=== PATIENT | female | born 1975 | race Two or more races ===

== ENCOUNTER 2018-03-12 09:42 | Observation (INO) ==
[2018-03-12 10:40] LABS: Baso # (Auto) 0.1 th/mm3 (0.0-0.2); Baso % (Auto) 0.5 % (0.0-2.0); Eos # (Auto) 0.1 th/mm3 (0.0-0.4); Eos % (Auto) 0.4 % (0.0-4.0); Hematocrit 35.6 % (35.0-46.0); Lymph # (Auto) 2.2 th/mm3 (1.0-4.8); Lymph % (Auto) 17.4 % (9.0-44.0); Mean Corpuscular HGB Conc 33.7 % (32.0-36.0); Mean Corpuscular Volume 92.1 fL (80.0-100.0); Mean Platelet Volume 7.7 fL (7.0-11.0); Mono # (Auto) 0.6 th/mm3 (0.0-0.9); Mono % (Auto) 4.9 % (0.0-8.0); Neut # (Auto) 9.9 th/mm3 (1.8-7.7); Neut % (Auto) 76.8 % (16.0-70.0); Platelet Count 276 th/mm3 (150-450); Red Blood Count 3.87 mil/mm3 (4.00-5.30); Red Cell Distribution Width 15.3 % (11.6-17.2); White Blood Count 12.9 th/mm3 (4.0-11.0)
[2018-03-12] MEDS ORDERED: Morphine Inj 4 MG, Morphine Inj 2 MG IV.PUSH ONE ×2 (10:45)
[2018-03-12] MEDS ORDERED: Sod Chloride 0.9% Inj 1,000 ML IV.SIG SCH (10:45)
[2018-03-12 11:00] LABS: Alkaline Phosphatase 66 U/L (45-117); Total Protein 6.8 g/dL (6.4-8.2)
[2018-03-12 11:04] LABS: Alanine Aminotransferase 16 U/L (10-53); Albumin 3.4 g/dL (3.4-5.0); Anion Gap 7 meq/L (5-15); Aspartate Aminotransferase 34 U/L (15-37); Blood Urea Nitrogen 18 mg/dL (7-18); Calcium 7.6 mg/dL (8.5-10.1); Carbon Dioxide 21.6 meq/L (21.0-32.0); Chloride 112 meq/L (98-107); Glomerular Filtration Rate 71 mL/min (>89); Glucose,Random 124 mg/dL (74-106); Lipase 63 U/L (73-393); Sodium 141 meq/L (136-145)
[2018-03-12 11:10] LABS: Potassium 4.6 meq/L (3.5-5.1)
--- NOTE | 2018-03-12 12:04 | CT ---
EXAM DATE: 03/12/2018 10:51 AM EDT AGE/SEX: 42 years / Female INDICATIONS: Severe abdomen pain uterine ablation two days ago CLINICAL DATA: This is the patient's initial encounter. Patient reports that signs and symptoms have been present for 1 day and indicates a pain score of 10/10. MEDICAL/SURGICAL HISTORY: Crohn's disease. . Uterine ablation ORAL CONTRAST: No oral contrast ingested. RADIATION DOSE: 7.29 CTDI (mGy) COMPARISON: No prior exams available for comparison. TECHNIQUE: Multiple contiguous axial images were obtained through the abdomen and pelvis following b olus infusion of 80 ml Omnipaque 350 (iohexol) nonionic water-soluble contrast as a single exam dos e. No oral contrast ingested. Using automated exposure control and adjustment of the mA and/or kV ac cording to patient size, radiation dose was kept as low as reasonably achievable to obtain optimal di agnostic quality images. DICOM format image data is available electronically for review and comparis on. FINDINGS: There is linear atelectasis in the left lower lobe abutting the oblique fissure. The osseous structur es are intact. No pleural or pericardial effusions are seen. There is a cyst in the right lobe of the liver posteriorly measuring 1 cm. Gallbladder, kidneys, spleen, pancreas, stomach unremarkable. Urin tone bladder is unremarkable. There is no evidence of bowel obstruction. The appendix is normal. The o varies are normal. There is abnormal prominence of the endometrial cavity measuring 3.6 cm in transve rse dimension on axial image 60. Also noted on image 16 endometrial cavity to the left is a small loc ule of air. This may be related to the patient's recent uterine ablation. CONCLUSION: 1. Abnormal appearance of the endometrial cavity which is widened up to 3.6 cm and contains a small locule of air. 2. There are atelectasis in the left lower lobe and right middle lobe. 3. Otherwise unremarkable. Electronically signed by: Eric Lopez MD 03/12/2018 12:03 PM EDT
[2018-03-12 13:07] LABS: Bilirubin,Urine Negative (Negative); Clarity,Urine Clear (Clear); Color,Urine Straw (Yellw/Straw); Glucose,Urine (UA) Negative (Negative); Leukocyte Esterase,Urine Negative (Negative); Nitrite,Urine Negative (Negative); Specific Gravity,Urine 1.042 (1.002-1.035); Squamous Epithelial Cell,Urine <1 /hpf (0-5)
[2018-03-12] MEDS ORDERED: Ketorolac Inj 30 MG/ML (IVP) Vial IV.PUSH ONE (13:20)
--- NOTE | 2018-03-12 14:50 | ED ---
HPI General Chief complaint: Abdominal Pain Stated complaint: GI Time Seen by Provider: 03/12/18 09:46 History of Present Illness HPI narrative: Patient 42-year-old female presents emergency department for evaluation of generalized abdominal pain for the past 2 days. Patient states she has a history of Crohn's and recently had a uterine ablation for dysfunctional uterine bleeding with an outside indigo vat tender cloth. Patient states she has been having pain ever since her ablation 2 days ago. No fevers no cough no congestion no diarrhea no blood in the stool. She states the symptoms are severe, generalized abdomen, associated signs symptoms duration in context as above Related Data Home Medications Medication Instructions Recorded Confirmed dicyclomine 20 mg PO QID 03/12/18 03/12/18 omeprazole 20 mg PO DAILY 03/12/18 03/12/18 Allergies Allergy/AdvReac Type Severity Reaction Status Date / Time Sulfa (Sulfonamide Allergy Swelling Verified 03/12/18 09:56 Antibiotics) NSAIDS (Non-Steroidal AdvReac Gastrointestinal Verified 03/12/18 09:56 Anti-Inflamma Upset Review of Systems ROS: all other systems reviewed are negative [facility] Medical History Medical History Crohn's colitis (Acute) Surgical History Surgical History History of endometrial ablation (Acute) Social History Social History Substance History: No History of Abuse Second Hand Smoke Exposure: Yes Smoking Status: Current every day smoker Tobacco Type: Cigarettes How Often Do You Have a Drink Containing Alcohol: Never Recent Travel in [facility] within the Last 8 Weeks: No Recent Out of Country Travel within the Last 8 Weeks: No Immunization History Tetanus Immunization: Unsure Exam Narrative Exam Narrative: GENERAL: Well-developed well-nourished female, writhing in pain. SKIN: Focused skin assessment warm/dry. HEAD: Atraumatic. Normocephalic. EYES: Pupils equal and round. No scleral icterus. No injection or drainage. ENT: No nasal bleeding or discharge. Mucous membranes pink and moist. NECK: Trachea midline. No JVD. CARDIOVASCULAR: Regular rate and rhythm. No murmur appreciated. RESPIRATORY: No accessory muscle use. Clear to auscultation. Breath sounds equal bilaterally. GASTROINTESTINAL: Abdomen soft, minimally tender in all 4 quadrants, nondistended. Hepatic and splenic margins not palpable. No rebound no percussive tenderness. MUSCULOSKELETAL: No obvious deformities. No clubbing. No cyanosis. No edema. NEUROLOGICAL: Awake and alert. No obvious cranial nerve deficits. Motor grossly within normal limits. Normal speech. PSYCHIATRIC: Appropriate mood and affect; insight and judgment normal. Course Initial Documented Vital Signs Temperature 98 F 03/12/18 09:47 Pulse Rate 71 03/12/18 09:47 Respiratory Rate 22 03/12/18 09:47 Blood Pressure 137/89 03/12/18 09:47 Pulse Oximetry 99 03/12/18 09:47 Last Documented Vital Signs Temperature 98 F 03/12/18 09:47 Pulse Rate 77 03/12/18 12:27 Respiratory Rate 24 03/12/18 12:27 Blood Pressure 135/82 03/12/18 12:27 Pulse Oximetry 98 03/12/18 12:27 Medical Decision Making MDM Narrative Medical decision making narrative: Patient room in the emergency department, really the patient has what appears to be a significant amount of pain with a very benign abdomen. Her labs are reassuring and she was within normal limits. Within normal limits was initially responsive to 6 mg of morphine and Zofran, she also did receive 4 mg of Zofran prior to arrival. Ultimately went to reassess patient after CAT scan which revealed minimal amount of intrauterine fluid which I think is appropriate after her procedure. She is still complaining of significant pain. A dose of Toradol was ordered as well, she is still writhing back and forth in pain. 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 Medical Screen Exam Complete: Yes Emergency Medical Condition: Yes Lab Data Result diagrams: 03/12/18 10:31 03/12/18 10:31 POC Results POC Urine Results Negative Lab Results 03/12/18 03/12/18 03/12/18 Range/Units 10:31 10:31 12:49 WBC 12.9 H (4.0-11.0) th/mm3 RBC 3.87 L (4.00-5.30) mil/mm3 Hgb 12.0 (11.6-15.3) gm/dL Hct 35.6 (35.0-46.0) % MCV 92.1 (80.0-100.0) fL MCH 31.0 (27.0-34.0) pg MCHC 33.7 (32.0-36.0) % RDW 15.3 (11.6-17.2) % Plt Count 276 (150-450) th/mm3 MPV 7.7 (7.0-11.0) fL Neut % (Auto) 76.8 H (16.0-70.0) % Lymph % (Auto) 17.4 (9.0-44.0) % [place] % (Auto) 4.9 (0.0-8.0) % Eos % (Auto) 0.4 (0.0-4.0) % Baso % (Auto) 0.5 (0.0-2.0) % Neut # (Auto) 9.9 H (1.8-7.7) th/mm3 Lymph # (Auto) 2.2 (1.0-4.8) th/mm3 [place] # (Auto) 0.6 (0.0-0.9) th/mm3 Eos # (Auto) 0.1 (0.0-0.4) th/mm3 Baso # (Auto) 0.1 (0.0-0.2) th/mm3 WBC Differential . Differential Comment Auto diff final Sodium 141 (136-145) meq/L Potassium 4.6 (3.5-5.1) meq/L Chloride 112 H (98-107) meq/L Carbon Dioxide 21.6 (21.0-32.0) meq/L Anion Gap 7 (5-15) meq/L BUN 18 (7-18) mg/dL Creatinine 0.87 (0.50-1.00) mg/dL Estimated GFR 71 L (>89) mL/min Random Glucose 124 H (74-106) mg/dL Calcium 7.6 L (8.5-10.1) mg/dL Total Bilirubin 0.4 (0.2-1.0) mg/dL AST 34 (15-37) U/L ALT 16 (10-53) U/L Alkaline Phosphatase 66 (45-117) U/L Total Protein 6.8 (6.4-8.2) g/dL Albumin 3.4 (3.4-5.0) g/dL Lipase 63 L (73-393) U/L Urine Color Straw (Yellw/Straw) Urine Clarity Clear (Clear) Urine pH 7.0 (5.0-8.5) Ur Specific [place] 1.042 H (1.002-1.035) Urine Protein Negative (Neg-Trace) mg/dL Urine Glucose (UA) Negative (Negative) mg/dL Urine Ketones 20 (Negative) mg/dL Urine Occult Blood Small H (Negative) Urine Nitrate Negative (Negative) Urine Bilirubin Negative (Negative) Urine Urobilinogen Less than 2 (Less than 2) mg/dL Ur Leukocyte Esterase Negative (Negative) Urine RBC 2 (0-3) /hpf Urine WBC 1 (0-5) /hpf Ur Squamous Epith Cells <1 (0-5) /hpf Micro UA Comment Culture not ind Ur Microscopic Review Not Reportable Urine Culture Comments Culture not ind Imaging Data Radiologist's impression: Abdomen/Pelvis CT 03/12/18 10:45 CONCLUSION: 1. Abnormal appearance of the endometrial cavity which is widened up to 3.6 cm and contains a small locule of air. 2. There are atelectasis in the left lower lobe and right middle lobe. 3. Otherwise unremarkable. Discharge Plan Discharge Disposition Patient Disposition: 30 Still Patient Discharge Details Diagnosis: Abdominal pain Physicians Team ED Provider: Mateo Moody Primary Care Provider: UNKNOWN, Attending Provider: Deondre Shipman Other Providers: Caro Luciano ; Octavia Rojo Discharge Interventions Interventions: Vital Signs Last Done: 03/12/18 12:27 Status ED Status: Admitted Observation Patient
--- NOTE | 2018-03-12 15:22 | P.CONOB ---
History of Present Illness Consult date: 03/12/18 Requesting Physician: Mateo Moody Reason for Consult: intractable abdominal pain Primary Care Physician: Decontamination Worker Dr. Macdonald Chief Complaint: Belly pain History of Present Illness: This is a 42-year-old status post NovaSure ablation 2 days ago. 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 Macdonald and U[place]. I was called for a consult due to intractable abdominal pain. Past OB history x4 without complication past E D TECH denies STDs past medical history Crohn's disease colitis allergies NSAIDs and sulfa surgical history NovaSure and tubal sterilization smokes 5 cigarettes daily denies illicit drug use Current meds all probably exam 2 g daily PMFSH - History History Provided By: Patient - Medical History Medical History: Medical History (Last Updated 03/12/18 @ 09:55 by Adore Blue RN) Crohn's colitis - Surgical History Surgical History: Surgical History (Last Updated 03/12/18 @ 09:55 by Adore Blue RN) History of endometrial ablation - Tobacco History Second Hand Smoke Exposure: Yes Tobacco Use In Past 30 Days: Yes Smoking Status: Current every day smoker Tobacco Type: Cigarettes - Alcohol History How Often Do You Have a Drink Containing Alcohol: Never - Substance Use History Substance History: No History of Abuse - Travel History Recent Travel in the [place] Within the Last 8 Weeks: No Recent Travel Out of the Country Within the Last 8 Weeks: No - Immunization History Tetanus Immunization: Unsure Medications and Allergies Active Medications: Active Medications Sodium Chloride (Ns Inj) 1,000 mls @ 0 mls/hr IV.SIG BOLUS DUY Last Infusion: 03/12/18 12:27 Dose: Infused Sodium Chloride (Ns Flush) 2 ml IV.FLUSH PRN PRN PRN Reason: FLUSH AFTER USING IV ACCESS Allergies Allergy/AdvReac Type Severity Reaction Status Date / Time Sulfa (Sulfonamide Allergy Swelling Verified 03/12/18 09:56 Antibiotics) NSAIDS (Non-Steroidal AdvReac Gastrointestinal Verified 03/12/18 09:56 Anti-Inflamma Upset Home Medications Medication Instructions Recorded Confirmed Type dicyclomine 20 mg PO QID 03/12/18 03/12/18 History omeprazole 20 mg PO DAILY 03/12/18 03/12/18 History Exam Vital signs: Vital Signs 03/12/18 09:47 03/12/18 11:48 03/12/18 12:27 Temperature 98 F Pulse Rate 71 77 Respiratory Rate 22 22 24 Blood Pressure 137/89 135/82 Pulse Oximetry 99 98 Intake & Output 03/11/18 03/12/18 03/12/18 18:59 06:59 18:59 Intake Total 1000 / 1000 Balance 1000 / 1000 Weight 57.153 kg Intake: IV 1000 / 1000 NS Inj 1,000 ML @ Wide Open IV. 1000 / 1000 SIG BOLUS DUY Rx#:[id number] - Constitutional severe distress - Routine HEENT Exam Head: Present: normocephalic Eye: Present: PERRL ENT: Present: mucous membranes moist - Routine Neck Exam Present: supple, full ROM - Routine Chest/Breast/Axilla Exam Chest wall: Absent: tenderness - Routine Respiratory Exam Present: CTA bilaterally. Absent: stridor - Routine Cardiovascular Exam Present: RRR - Routine Abdominal Exam Present: soft, normoactive bowel sounds, tenderness (On examination tenderness in all 4 quadrants noted however no rebound voluntary guarding present. Slight hypoactive bowel sounds) - Routine Exam External: Present: normal urethra appearance Groin: Absent: inguinal hernia Perineum Description: Intact Comments: Genital exam no lesions are present. Sterile speculum exam the cervix appears to be unremarkable there is some bleeding which is mucoid not unusual for a post ablative procedure no active vaginal bleeding is present the uterus is noted to be firm mobile nontender no adnexal tenderness no adnexal masses no point tenderness present no malodor noted. Patient reports no recent coitus last sexually active 2 months ago - Routine Extremities Exam Absent: cyanosis - Routine Skin Exam Present: intact - Routine Neurological Exam Present: alert, oriented X3 Results - Labs CBC & Chem 7: 03/12/18 10:31 03/12/18 10:31 Labs: Laboratory Results - last 24 hr 03/12/18 03/12/18 03/12/18 10:31 10:31 12:49 WBC 12.9 H RBC 3.87 L Hgb 12.0 Hct 35.6 MCV 92.1 MCH 31.0 MCHC 33.7 RDW 15.3 Plt Count 276 MPV 7.7 Neut % (Auto) 76.8 H Lymph % (Auto) 17.4 [place] % (Auto) 4.9 Eos % (Auto) 0.4 Baso % (Auto) 0.5 Neut # (Auto) 9.9 H Lymph # (Auto) 2.2 [place] # (Auto) 0.6 Eos # (Auto) 0.1 Baso # (Auto) 0.1 WBC Differential . Differential Comment Auto diff final Sodium 141 Potassium 4.6 Chloride 112 H Carbon Dioxide 21.6 Anion Gap 7 BUN 18 Creatinine 0.87 Estimated GFR 71 L Random Glucose 124 H Calcium 7.6 L Total Bilirubin 0.4 AST 34 ALT 16 Alkaline Phosphatase 66 Total Protein 6.8 Albumin 3.4 Lipase 63 L Urine Color Straw Urine Clarity Clear Urine pH 7.0 Ur Specific [place] 1.042 H Urine Protein Negative Urine Glucose (UA) Negative Urine Ketones 20 Urine Occult Blood Small H Urine Nitrate Negative Urine Bilirubin Negative Urine Urobilinogen Less than 2 Ur Leukocyte Esterase Negative Urine RBC 2 Urine WBC 1 Ur Squamous Epith Cells <1 Micro UA Comment Culture not ind Ur Microscopic Review Not Reportable Urine Culture Comments Culture not ind - Imaging Impressions Abdomen/Pelvis CT 03/12/18 10:45 CONCLUSION: 1. Abnormal appearance of the endometrial cavity which is widened up to 3.6 cm and contains a small locule of air. 2. There are atelectasis in the left lower lobe and right middle lobe. 3. Otherwise unremarkable. Assessment and Plan - Diagnosis (1) Abdominal pain Code(s): R10.9 - Unspecified abdominal pain Status: Acute (2) History of endometrial ablation Code(s): Z98.890 - Other specified postprocedural states Status: Acute Plan: Patient seen and evaluated with PGY 2 MD Bonnie. E D TECH exam is unremarkable. Cultures obtained to ERR on the side of caution. Review of CT scans there is no signs of uterine perforation-the free air which is minimal is consistent with post ablative changes. I have discussed with the ED attending at this time from a E D TECH standpoint clear.
[2018-03-12 15:57] LABS: Amphetamine Screen,Urine Neg (Neg); Barbiturate Screen,Urine Neg (Neg); Cannabinoid Screen,Urine Pos (Neg); Cocaine Screen,Urine Neg (Neg)
[2018-03-12 16:11] LABS: Opiate Screen,Urine Pos (Neg)
[2018-03-12] MEDS ORDERED: Acetaminophen 325 MG Tablet PO PRN ×2 (16:20)
[2018-03-12] MEDS ORDERED: Naloxone Inj 0.4 MG/ML Vial IV.PUSH PRN (16:20)
[2018-03-12] MEDS ORDERED: Bisacodyl 10 MG Supp RECTAL PRN (16:20)
[2018-03-12] MEDS ORDERED: Morphine Sulfate Inj 2 MG/ML Vial IV.PUSH PRN (16:20)
--- NOTE | 2018-03-12 16:20 | P.CONGI ---
History of Present Illness Consult date: 03/12/18 Consult reason: Intractable abdominal pain Chief complaint: GI History of Present Illness: Ms. Newman is a 42-year-old patient who presents to the emergency room this afternoon at [facility] for reported abdominal pain for 2 days. Patient states she has a history of Crohn's, gastritis, and colitis. Patient status post uterine ablation 2 days ago and states she has been having mid epigastric abdominal spasms and cramping since the procedure. She denies any fever or chills. She denies diarrhea constipation and any noted blood in the stool. She endorses nausea but denies vomiting. She rates the pain as 10 out of 10 at this time and states the only medication that works for this pain "begins with the D and has to be given with my anxiety medicine to the IV". GC and Chlamydia PCR obtained and pending. 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 Our practice has been consulted to evaluate patient's intractable abdominal pain. CT abdomen and pelvis done on admission reveal--. 1. Abnormal appearance of the endometrial cavity which is widened up to 3.6 cm and contains a small locule of air. 2. There are atelectasis in the left lower lobe and right middle lobe. 3. Otherwise unremarkable. Patient denies any noted blood in stool. States she takes Bentyl as a home medication for pain as well as omeprazole once daily. She reports last EGD and colonoscopy done 1 year ago, at that time she states she was diagnosed with Crohn's and was treated for colitis. Patient denies any known family history of gastrointestinal disorders/diseases. Reports she smokes 3 cigarettes daily and does not drink alcohol. She denies the use of any illicit drugs. During consultation patient writhing restless and moaning <Ricarda Padron - Last Filed: 03/12/18 15:55> Review of Systems All other systems reviewed negative except as stated in HPI <Ricarda Padron - Last Filed: 03/12/18 15:55> PMFSH - History History Provided By: Patient - Medical History Medical History: Medical History (Last Updated 03/12/18 @ 09:55 by Adore Blue RN) Crohn's colitis - Surgical History Surgical History: Surgical History (Last Updated 03/12/18 @ 09:55 by Adore Blue RN) History of endometrial ablation - Tobacco History Second Hand Smoke Exposure: Yes Tobacco Use In Past 30 Days: Yes Smoking Status: Current every day smoker Tobacco Type: Cigarettes - Alcohol History How Often Do You Have a Drink Containing Alcohol: Never - Substance Use History Substance History: No History of Abuse - Travel History Recent Travel in the [place] Within the Last 8 Weeks: No Recent Travel Out of the Country Within the Last 8 Weeks: No - Immunization History Tetanus Immunization: Unsure <Ricarda Padron - Last Filed: 03/12/18 15:55> - Medical History Medical History: Medical History (Last Updated 03/12/18 @ 09:55 by Adore Blue RN) Crohn's colitis - Surgical History Surgical History: Surgical History (Last Updated 03/12/18 @ 09:55 by Adore Blue RN) History of endometrial ablation <Caro Luciano - Last Filed: 03/12/18 20:37> Medications and Allergies Active Medications: Active Medications Sodium Chloride (Ns Inj) 1,000 mls @ 0 mls/hr IV.SIG BOLUS DUY Last Infusion: 03/12/18 12:27 Dose: Infused Sodium Chloride (Ns Flush) 2 ml IV.FLUSH PRN PRN PRN Reason: FLUSH AFTER USING IV ACCESS <Ricarda Padron - Last Filed: 03/12/18 15:55> Active Medications: Active Medications Acetaminophen (Tylenol) 650 mg PO Q6HR PRN PRN Reason: PAIN SCALE 1 TO 2 Acetaminophen (Tylenol) 650 mg PO Q4H PRN PRN Reason: Temp > 100.4 Hydrocodone Bitart/Acetaminophen ([place] 5/325) 1 tab PO Q4H PRN PRN Reason: PAIN SCALE 3 TO 5 Hydrocodone Bitart/Acetaminophen ([place] 7.5/325) 1 tab PO Q4H PRN PRN Reason: PAIN SCALE 6 TO 10 Last Admin: 03/12/18 16:49 Dose: 1 tab Al Hydroxide/Mg Hydroxide (Milk Of Magnesia Liq) 30 ml PO Q12H PRN PRN Reason: Mild Constipation Alprazolam (Xanax) 1 mg PO BID PRN PRN Reason: ANXIETY Bisacodyl (Dulcolax Supp) 10 mg RECTAL DAILY PRN PRN Reason: SEVERE CONSITIPATION Dicyclomine HCl (Bentyl) 20 mg PO QID [facility] Last Admin: 03/12/18 17:58 Dose: 20 mg Doxycycline Hyclate (Vibratab) 100 mg PO BID [facility] Sodium Chloride (Ns Inj) 1,000 mls @ 0 mls/hr IV.SIG BOLUS [facility] Last Infusion: 03/12/18 12:27 Dose: Infused Sodium Chloride (Ns Inj) 1,000 mls @ 60 mls/hr IV.CONT .[id number] [facility] Last Admin: 03/12/18 17:04 Dose: 60 mls/hr Lactulose (Lactulose Liq) 30 ml PO DAILY PRN PRN Reason: SEVERE CONSITIPATION Morphine Sulfate (Morphine Inj) 2 mg IV.PUSH Q3H PRN PRN Reason: PAIN 3-5; IF UABLE TO TAKE PO Morphine Sulfate (Morphine Inj) 4 mg IV.PUSH Q3H PRN PRN Reason: PAIN 6-10;IF UNABLE TO TAKE PO Last Admin: 03/12/18 17:58 Dose: 4 mg Morphine Sulfate (Morphine Inj) 4 mg IV.PUSH Q3H PRN PRN Reason: BREAKTHROUGH PAIN Naloxone HCl (Narcan Inj) 0.4 mg IV.PUSH UNSCH PRN PRN Reason: SEE LABEL COMMENTS Ondansetron HCl (Zofran Inj) 4 mg IV.PUSH Q6H PRN PRN Reason: NAUSEA OR VOMITING Last Admin: 03/12/18 16:50 Dose: 4 mg Pantoprazole Sodium (Protonix) 20 mg PO DAILY [facility] Last Admin: 03/12/18 16:49 Dose: 20 mg Sennosides (Senokot) 17.2 mg PO Q12H PRN PRN Reason: Moderate Constipation Sodium Chloride (Ns Flush) 2 ml IV.FLUSH PRN PRN PRN Reason: FLUSH AFTER USING IV ACCESS <Caro Luciano - Last Filed: 03/12/18 20:37> Allergies Allergy/AdvReac Type Severity Reaction Status Date / Time Sulfa (Sulfonamide Allergy Swelling Verified 03/12/18 09:56 Antibiotics) NSAIDS (Non-Steroidal AdvReac Gastrointestinal Verified 03/12/18 09:56 Anti-Inflamma Upset Home Medications Medication Instructions Recorded Confirmed Type alprazolam 1 mg PO BID 03/12/18 03/12/18 History dicyclomine 20 mg PO QID 03/12/18 03/12/18 History doxycycline hyclate 100 mg PO BID 03/12/18 03/12/18 History omeprazole 20 mg PO DAILY 03/12/18 03/12/18 History Exam Vital signs: Vital Signs 03/12/18 09:47 03/12/18 11:48 03/12/18 12:27 Temperature 98 F Pulse Rate 71 77 Respiratory Rate 22 22 24 Blood Pressure 137/89 135/82 Pulse Oximetry 99 98 03/12/18 15:13 Temperature Pulse Rate Respiratory Rate 14 Blood Pressure Pulse Oximetry Intake & Output 03/11/18 03/12/18 03/12/18 18:59 06:59 18:59 Intake Total 1000 / 1000 Balance 1000 / 1000 Weight 57.153 kg Intake: IV 1000 / 1000 NS Inj 1,000 ML @ Wide Open IV. 1000 / 1000 SIG BOLUS DUY Rx#:[id number] - Constitutional moderate distress - Routine HEENT Exam Head: Present: normocephalic - Routine Respiratory Exam Present: CTA bilaterally. Absent: accessory muscle use - Routine Cardiovascular Exam Present: RRR - Routine Abdominal Exam Present: soft, normoactive bowel sounds, tenderness. Absent: distended, guarding, firm - Routine Skin Exam Present: dry, warm - Routine Neurological Exam Present: alert, oriented X3 <Padron,Ricarda - Last Filed: 03/12/18 15:55> Vital signs: Vital Signs 03/12/18 09:47 03/12/18 11:48 03/12/18 12:27 Temperature 98 F Pulse Rate 71 77 Respiratory Rate 22 22 24 Blood Pressure 137/89 135/82 Pulse Oximetry 99 98 03/12/18 15:13 03/12/18 16:08 Temperature 98.4 F Pulse Rate 69 Respiratory Rate 14 20 Blood Pressure 136/65 Pulse Oximetry 99 Intake & Output 03/12/18 03/12/18 03/13/18 06:59 18:59 06:59 Intake Total 1000 / 1000 Balance 1000 / 1000 Weight 60.4 kg Intake: IV 1000 / 1000 NS Inj 1,000 ML @ Wide Open IV. 1000 / 1000 SIG BOLUS DUY Rx#:[id number] Other: # Voids 1 Weight On Admission 60.4 kg <Caro Luciano - Last Filed: 03/12/18 20:37> Results - Labs CBC & Chem 7: 1017/18 10:31 03/12/18 10:31 Labs: Laboratory Results - last 24 hr 03/12/18 03/12/18 03/12/18 10:31 10:31 12:49 WBC 12.9 H RBC 3.87 L Hgb 12.0 Hct 35.6 MCV 92.1 MCH 31.0 MCHC 33.7 RDW 15.3 Plt Count 276 MPV 7.7 Neut % (Auto) 76.8 H Lymph % (Auto) 17.4 [place] % (Auto) 4.9 Eos % (Auto) 0.4 Baso % (Auto) 0.5 Neut # (Auto) 9.9 H Lymph # (Auto) 2.2 [place] # (Auto) 0.6 Eos # (Auto) 0.1 Baso # (Auto) 0.1 WBC Differential . Differential Comment Auto diff final Sodium 141 Potassium 4.6 Chloride 112 H Carbon Dioxide 21.6 Anion Gap 7 BUN 18 Creatinine 0.87 Estimated GFR 71 L Random Glucose 124 H Calcium 7.6 L Total Bilirubin 0.4 AST 34 ALT 16 Alkaline Phosphatase 66 Total Protein 6.8 Albumin 3.4 Lipase 63 L Urine Color Straw Urine Clarity Clear Urine pH 7.0 Ur Specific [place] 1.042 H Urine Protein Negative Urine Glucose (UA) Negative Urine Ketones 20 Urine Occult Blood Small H Urine Nitrate Negative Urine Bilirubin Negative Urine Urobilinogen Less than 2 Ur Leukocyte Esterase Negative Urine RBC 2 Urine WBC 1 Ur Squamous Epith Cells <1 Micro UA Comment Culture not ind Ur Microscopic Review Not Reportable Urine Culture Comments Culture not ind - Imaging Impressions Abdomen/Pelvis CT 03/12/18 10:45 CONCLUSION: 1. Abnormal appearance of the endometrial cavity which is widened up to 3.6 cm and contains a small locule of air. 2. There are atelectasis in the left lower lobe and right middle lobe. 3. Otherwise unremarkable. <Ricarda Padron - Last Filed: 03/12/18 15:55> - Labs CBC & Chem 7: 03/12/18 10:31 03/12/18 10:31 Labs: Laboratory Results - last 24 hr 03/12/18 03/12/18 03/12/18 10:31 10:31 12:49 WBC 12.9 H RBC 3.87 L Hgb 12.0 Hct 35.6 MCV 92.1 MCH 31.0 MCHC 33.7 RDW 15.3 Plt Count 276 MPV 7.7 Neut % (Auto) 76.8 H Lymph % (Auto) 17.4 [place] % (Auto) 4.9 Eos % (Auto) 0.4 Baso % (Auto) 0.5 Neut # (Auto) 9.9 H Lymph # (Auto) 2.2 [place] # (Auto) 0.6 Eos # (Auto) 0.1 Baso # (Auto) 0.1 WBC Differential . Differential Comment Auto diff final Sodium 141 Potassium 4.6 Chloride 112 H Carbon Dioxide 21.6 Anion Gap 7 BUN 18 Creatinine 0.87 Estimated GFR 71 L Random Glucose 124 H Calcium 7.6 L Total Bilirubin 0.4 AST 34 ALT 16 Alkaline Phosphatase 66 Total Protein 6.8 Albumin 3.4 Lipase 63 L Urine Color Straw Urine Clarity Clear Urine pH 7.0 Ur Specific [place] 1.042 H Urine Protein Negative Urine Glucose (UA) Negative Urine Ketones 20 Urine Occult Blood Small H Urine Nitrate Negative Urine Bilirubin Negative Urine Urobilinogen Less than 2 Ur Leukocyte Esterase Negative Urine RBC 2 Urine WBC 1 Ur Squamous Epith Cells <1 Micro UA Comment Culture not ind Ur Microscopic Review Not Reportable Urine Culture Comments Culture not ind Clue Cells (Wet Prep) Trichomonas (Wet Prep) Yeast (Wet Prep) Urine Opiates Screen Ur Barbiturates Screen Ur Amphetamines Screen U Benzodiazepines Scrn Urine Cocaine Screen U Cannabinoids Screen Chlam trachomat DNA PCR N.gonorrhoeae DNA (PCR) 03/12/18 03/12/18 03/12/18 12:49 14:28 14:28 WBC RBC Hgb Hct MCV MCH MCHC RDW Plt Count MPV Neut % (Auto) Lymph % (Auto) [place] % (Auto) Eos % (Auto) Baso % (Auto) Neut # (Auto) Lymph # (Auto) [place] # (Auto) Eos # (Auto) Baso # (Auto) WBC Differential Differential Comment Sodium Potassium Chloride Carbon Dioxide Anion Gap BUN Creatinine Estimated GFR Random Glucose Calcium Total Bilirubin AST ALT Alkaline Phosphatase Total Protein Albumin Lipase Urine Color Urine Clarity Urine pH Ur Specific [place] Urine Protein Urine Glucose (UA) Urine Ketones Urine Occult Blood Urine Nitrate Urine Bilirubin Urine Urobilinogen Ur Leukocyte Esterase Urine RBC Urine WBC Ur Squamous Epith Cells Micro UA Comment Ur Microscopic Review Urine Culture Comments Clue Cells (Wet Prep) None seen Trichomonas (Wet Prep) None seen Yeast (Wet Prep) None seen Urine Opiates Screen Pos H Ur Barbiturates Screen Neg Ur Amphetamines Screen Neg U Benzodiazepines Scrn Neg Urine Cocaine Screen Neg U Cannabinoids Screen Pos H Chlam trachomat DNA PCR Not detected N.gonorrhoeae DNA (PCR) Not detected - Imaging Impressions Abdomen/Pelvis CT 03/12/18 10:45 CONCLUSION: 1. Abnormal appearance of the endometrial cavity which is widened up to 3.6 cm and contains a small locule of air. 2. There are atelectasis in the left lower lobe and right middle lobe. 3. Otherwise unremarkable. <Caro Luciano - Last Filed: 03/12/18 20:37> Assessment and Plan (1) Abdominal pain Status: Acute Code(s): R10.9 - Unspecified abdominal pain - Plan Ms. Newman is a 42-year-old patient who presents to the emergency room this afternoon at [facility] for reported abdominal pain for 2 days. Patient states she has a history of Crohn's, gastritis, and colitis. Patient status post uterine ablation 2 days ago and states she has been having mid epigastric abdominal spasms and cramping since the procedure. She denies any fever or chills. She denies diarrhea constipation and any noted blood in the stool. She endorses nausea but denies vomiting. She rates the pain as 10 out of 10 at this time and states the only medication that works for this pain "begins with the D and has to be given with my anxiety medicine to the IV". Patient unable to determine aggravating or alleviating factors she states this pain is intermittent. GC and Chlamydia PCR obtained and pending. 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 Our practice has been consulted to evaluate patient's intractable abdominal pain. CT abdomen and pelvis done on admission reveal--. 1. Abnormal appearance of the endometrial cavity which is widened up to 3.6 cm and contains a small locule of air. 2. There are atelectasis in the left lower lobe and right middle lobe. 3. Otherwise unremarkable. Patient denies any noted blood in stool. States last BM this morning soft and brown. States she takes Bentyl as a home medication for pain as well as omeprazole once daily. She reports last EGD and colonoscopy done 1 year ago, at that time she states she was diagnosed with Crohn's and was treated for colitis. Patient denies any known family history of gastrointestinal disorders/ diseases. Reports she smokes 3 cigarettes daily and does not drink alcohol. She denies the use of any illicit drugs. During consultation patient writhing restless and moaning Intractable abdominal pain Patient status post uterine ablation 2 days ago, presented to the emergency department with complaint of epigastric mid upper quadrant abdominal spasms and cramping since having procedure. CT abdomen and pelvis results as noted above. WBC 12.9 hemoglobin 12.0 hematocrit 35.6 platelet count 276. Total bilirubin 0.4 AST 34 ALT 16 alk phos 66 lipase 63. Plan -Clear liquid diet -N.p.o. after midnight -Antiemetics and analgesics as per attending -May consider endoscopy -Supportive care -Further recommendations to follow based on patient status and findings This patient has been seen by myself and Dr. Luciano and this note is written on her behalf - Attending Attestation Dr. Luciano <Ricarda Padron - Last Filed: 03/12/18 15:55> (1) Abdominal pain Status: Acute Code(s): R10.9 - Unspecified abdominal pain - Attending Attestation seen, examined Patient states she has this time of pain for 9 years, not new, triggered by different events, including calciminer issues No need for repeat endoscopy for now Clear liquid diet <Caro Luciano - Last Filed: 03/12/18 20:37>
--- NOTE | 2018-03-12 16:33 | P.HP ---
History of Present Illness Primary Care Physician: UNKNOWN Chief Complaint: Belly pain History of Present Illness: This is a 42-year-old with a history of Crohn's colitis status post NovaSure ablation 2 days ago. Her condominium property manager is Dr. Quiroz. She presents to the emergency department because of abdominal pain since the procedure. She describes a severe mid abdominal pain associated with nausea and dry heaves. Denies fever, chills, UTI symptoms and constipation. She has chronic loose stool once a day on Bentyl. She also has vaginal spotting. Abdominal CT showed abnormal appearance of the endometrial cavity to 3.6 cm and contains a small locule of air. Per Hand Binder Cutter CT scan with no signs of uterine perforation, the free air which is minimal is consistent with post ablative changes. Speculum exam showed small amount of bleeding from the cervix which is not unusual from post ablation. Cultures were taken. At this time, patient still complains of pain unable to obtain good history as patient has constant morning. She has received IV morphine and Toradol. All other systems reviewed negative. Case also discussed with GI Review of Systems All other systems reviewed negative except as stated in HPI PMFSH - History History Provided By: Patient - Medical History Medical History: Medical History (Last Reviewed 03/12/18 @ 16:28 by Jhon Cody MD) Crohn's colitis - Surgical History Surgical History: Surgical History (Last Reviewed 03/12/18 @ 16:28 by Jhon Cody MD) History of endometrial ablation - Family History Family History: Family History (Last Updated 03/12/18 @ 16:29 by Jhon Cody MD) Other No pertinent family history - Tobacco History Second Hand Smoke Exposure: Yes Tobacco Use In Past 30 Days: Yes Smoking Status: Current every day smoker Tobacco Type: Cigarettes - Alcohol History How Often Do You Have a Drink Containing Alcohol: Never - Substance Use History Substance History: No History of Abuse - Travel History Recent Travel in the [place] Within the Last 8 Weeks: No Recent Travel Out of the Country Within the Last 8 Weeks: No - Immunization History Tetanus Immunization: Unsure Medications and Allergies Active Medications: Active Medications Sodium Chloride (Ns Inj) 1,000 mls @ 0 mls/hr IV.SIG BOLUS DUY Last Infusion: 03/12/18 12:27 Dose: Infused Sodium Chloride (Ns Flush) 2 ml IV.FLUSH PRN PRN PRN Reason: FLUSH AFTER USING IV ACCESS Allergies Allergy/AdvReac Type Severity Reaction Status Date / Time Sulfa (Sulfonamide Allergy Swelling Verified 03/12/18 09:56 Antibiotics) NSAIDS (Non-Steroidal AdvReac Gastrointestinal Verified 03/12/18 09:56 Anti-Inflamma Upset Home Medications Medication Instructions Recorded Confirmed Type alprazolam 1 mg PO BID 03/12/18 03/12/18 History dicyclomine 20 mg PO QID 03/12/18 03/12/18 History doxycycline hyclate 100 mg PO BID 03/12/18 03/12/18 History omeprazole 20 mg PO DAILY 03/12/18 03/12/18 History Exam Vital signs: Vital Signs 03/12/18 09:47 03/12/18 11:48 03/12/18 12:27 Temperature 98 F Pulse Rate 71 77 Respiratory Rate 22 22 24 Blood Pressure 137/89 135/82 Pulse Oximetry 99 98 03/12/18 15:13 03/12/18 16:08 Temperature 98.4 F Pulse Rate 69 Respiratory Rate 14 20 Blood Pressure 136/65 Pulse Oximetry 99 Intake & Output 03/11/18 03/12/18 03/12/18 18:59 06:59 18:59 Intake Total 1000 / 1000 Balance 1000 / 1000 Weight 60.4 kg Intake: IV 1000 / 1000 NS Inj 1,000 ML @ Wide Open IV. 1000 / 1000 SIG BOLUS [facility] Rx#:[id number] Other: Weight On Admission 60.4 kg Narrative: GENERAL: Well-developed, well-nourished in distress. She is crying/morning but no tears SKIN: Warm and dry. HEAD: Atraumatic. Normocephalic. EYES: Pupils equal and round. No scleral icterus. No injection or drainage. ENT: No nasal bleeding or discharge. Mucous membranes pink and moist. NECK: Trachea midline. No JVD. CARDIOVASCULAR: Regular rate and rhythm. RESPIRATORY: No accessory muscle use. Clear to auscultation. Breath sounds equal bilaterally. GASTROINTESTINAL: Abdomen soft, tender epigastric, nondistended. No rebound. Please see ELECTRIC MOTOR ASSEMBLER AND TESTER notes on ELECTRIC MOTOR ASSEMBLER AND TESTER exam MUSCULOSKELETAL: Extremities without clubbing, cyanosis, or edema. No obvious deformities. NEUROLOGICAL: Awake and alert. No obvious cranial nerve deficits. Motor grossly within normal limits. Five out of 5 muscle strength in the arms and legs. Normal speech. PSYCHIATRIC: Appropriate mood and affect; insight and judgment normal. Results - Labs CBC & Chem 7: 03/12/18 10:31 03/12/18 10:31 Labs: Laboratory Results - last 24 hr 03/12/18 03/12/18 03/12/18 10:31 10:31 12:49 WBC 12.9 H RBC 3.87 L Hgb 12.0 Hct 35.6 MCV 92.1 MCH 31.0 MCHC 33.7 RDW 15.3 Plt Count 276 MPV 7.7 Neut % (Auto) 76.8 H Lymph % (Auto) 17.4 [place] % (Auto) 4.9 Eos % (Auto) 0.4 Baso % (Auto) 0.5 Neut # (Auto) 9.9 H Lymph # (Auto) 2.2 [place] # (Auto) 0.6 Eos # (Auto) 0.1 Baso # (Auto) 0.1 WBC Differential . Differential Comment Auto diff final Sodium 141 Potassium 4.6 Chloride 112 H Carbon Dioxide 21.6 Anion Gap 7 BUN 18 Creatinine 0.87 Estimated GFR 71 L Random Glucose 124 H Calcium 7.6 L Total Bilirubin 0.4 AST 34 ALT 16 Alkaline Phosphatase 66 Total Protein 6.8 Albumin 3.4 Lipase 63 L Urine Color Straw Urine Clarity Clear Urine pH 7.0 Ur Specific [place] 1.042 H Urine Protein Negative Urine Glucose (UA) Negative Urine Ketones 20 Urine Occult Blood Small H Urine Nitrate Negative Urine Bilirubin Negative Urine Urobilinogen Less than 2 Ur Leukocyte Esterase Negative Urine RBC 2 Urine WBC 1 Ur Squamous Epith Cells <1 Micro UA Comment Culture not ind Ur Microscopic Review Not Reportable Urine Culture Comments Culture not ind Clue Cells (Wet Prep) Trichomonas (Wet Prep) Yeast (Wet Prep) Urine Opiates Screen Ur Barbiturates Screen Ur Amphetamines Screen U Benzodiazepines Scrn Urine Cocaine Screen U Cannabinoids Screen 03/12/18 03/12/18 12:49 14:28 WBC RBC Hgb Hct MCV MCH MCHC RDW Plt Count MPV Neut % (Auto) Lymph % (Auto) [place] % (Auto) Eos % (Auto) Baso % (Auto) Neut # (Auto) Lymph # (Auto) [place] # (Auto) Eos # (Auto) Baso # (Auto) WBC Differential Differential Comment Sodium Potassium Chloride Carbon Dioxide Anion Gap BUN Creatinine Estimated GFR Random Glucose Calcium Total Bilirubin AST ALT Alkaline Phosphatase Total Protein Albumin Lipase Urine Color Urine Clarity Urine pH Ur Specific [place] Urine Protein Urine Glucose (UA) Urine Ketones Urine Occult Blood Urine Nitrate Urine Bilirubin Urine Urobilinogen Ur Leukocyte Esterase Urine RBC Urine WBC Ur Squamous Epith Cells Micro UA Comment Ur Microscopic Review Urine Culture Comments Clue Cells (Wet Prep) None seen Trichomonas (Wet Prep) None seen Yeast (Wet Prep) None seen Urine Opiates Screen Pos H Ur Barbiturates Screen Neg Ur Amphetamines Screen Neg U Benzodiazepines Scrn Neg Urine Cocaine Screen Neg U Cannabinoids Screen Pos H - Imaging Impressions Abdomen/Pelvis CT 03/12/18 10:45 CONCLUSION: 1. Abnormal appearance of the endometrial cavity which is widened up to 3.6 cm and contains a small locule of air. 2. There are atelectasis in the left lower lobe and right middle lobe. 3. Otherwise unremarkable. Caprini VTE Risk Assessment Caprini VTE Risk Assessment: No/Low Risk (score <= 1) Caprini Risk Assessment Model: Point Value = 1 Point Value = 2 Point Value = 3 Point Value = 5 Age 41-60 Minor surgery BMI > 25 kg/m2 Swollen legs Varicose veins or History of unexplained or recurrent spontaneous Oral contraceptives or hormone replacement Sepsis (< 1 month) Serious lung disease, including pneumonia (< 1 month) Abnormal pulmonary function Acute myocardial infarction Congestive heart failure (< 1 month) History of inflammatory bowel disease Medical patient at bed rest Age 61-74 Arthroscopic surgery Major open surgery (> 45 min) Laparoscopic surgery (> 45 min) Malignancy Confined to bed (> 72 hours) Immobilizing plaster cast Central venous access Age >= 75 History of VTE Family history of VTE Factor V Leiden Prothrombin [id number] Lupus anticoagulant Anticardiolipin antibodies Elevated serum homocysteine Heparin-induced thrombocytopenia Other congenital or acquired thrombophilia Stroke (< 1 month) Elective arthroplasty Hip, pelvis, or leg fracture Acute spinal cord injury (< 1 month) Prophylaxis Regimen: Total Risk Factor Score Risk Level Prophylaxis Regimen 0-1 Low Early ambulation 2 Moderate Order ONE of the following: *Sequential Compression Device (SCD) *Heparin 5000 units SQ BID 3-4 Higher Order ONE of the following medications: *Heparin 5000 units SQ TID *Enoxaparin/Lovenox 40 mg SQ daily (WT < 150 kg, CrCl > 30 mL/min) *Enoxaparin/Lovenox 30 mg SQ daily (WT < 150 kg, CrCl > 10-29 mL/min) *Enoxaparin/Lovenox 30 mg SQ BID (WT < 150 kg, CrCl > 30 mL/min) AND/OR *Sequential Compression Device (SCD) 5 or more Highest Order ONE of the following medications: *Heparin 5000 units SQ TID (Preferred with Epidurals) *Enoxaparin/Lovenox 40 mg SQ daily (WT < 150 kg, CrCl > 30 mL/min) *Enoxaparin/Lovenox 30 mg SQ daily (WT < 150 kg, CrCl > 10-29 mL/min) *Enoxaparin/Lovenox 30 mg SQ BID (WT < 150 kg, CrCl > 30 mL/min) AND *Sequential Compression Device (SCD) Assessment and Plan - Plan This is a 42-year-old with a history of Crohn's colitis status post NovaSure ablation 2 days ago. She presents to the emergency department because of abdominal pain since the procedure. Abdominal CT showed abnormal appearance of the endometrial cavity to 3.6 cm and contains a small locule of air. Per Hand Binder Cutter CT scan with no signs of uterine perforation, the free air which is minimal is consistent with post ablative changes. Speculum exam showed small amount of bleeding from the cervix which is not unusual from post ablation. Intractable pain status post endometrial ablation. Per ELECTRIC MOTOR ASSEMBLER AND TESTER, minimal free air seen on CT scan consistent with post ablative changes. Follow-up cultures. Discussed with GI, keep patient n.p.o. Start IV fluid and pain management with Lortab and IV morphine. Counseled regarding narcotics. Leukocytosis. Urinalysis unremarkable. No respiratory symptoms. Likely reactive. Repeat CBC in the morning Hyperglycemia. Obtain fasting glucose Follow-up UDS DVT prophylaxis with early ambulation
[2018-03-12] MEDS: Pantoprazole Sodium 20 MG DR Tablet PO SCH (16:49)
[2018-03-12] MEDS: Sod Chloride 0.9% Inj 1,000 ML IV.CONT SCH (17:04)
[2018-03-12] MEDS: Morphine Inj 4 MG/ML Vial IV.PUSH PRN ×2 (17:58→22:24)
[2018-03-13] MEDS: Morphine Inj 4 MG/ML Vial IV.PUSH PRN ×5 (01:30→19:54)
[2018-03-13] MEDS: Pantoprazole Sodium 20 MG DR Tablet PO SCH (08:31)
[2018-03-13 09:00] LABS: Baso % (Auto) 0.4 % (0.0-2.0); Eos % (Auto) 0.7 % (0.0-4.0); Hematocrit 32.7 % (35.0-46.0); Hemoglobin 11.1 gm/dL (11.6-15.3); Lymph # (Auto) 3.2 th/mm3 (1.0-4.8); Lymph % (Auto) 51.5 % (9.0-44.0); Mean Corpuscular Hemoglobin 31.5 pg (27.0-34.0); Mean Corpuscular Volume 92.7 fL (80.0-100.0); Mean Platelet Volume 7.3 fL (7.0-11.0); Mono # (Auto) 0.5 th/mm3 (0.0-0.9); Mono % (Auto) 8.6 % (0.0-8.0); Neut # (Auto) 2.4 th/mm3 (1.8-7.7); Neut % (Auto) 38.8 % (16.0-70.0); Platelet Count 238 th/mm3 (150-450); Red Blood Count 3.53 mil/mm3 (4.00-5.30); Red Cell Distribution Width 14.9 % (11.6-17.2); White Blood Count 6.2 th/mm3 (4.0-11.0)
--- NOTE | 2018-03-13 09:42 | P.PN ---
Subjective Interval history: Follow-up for abdominal pain. Patient is moaning and crying in pain, difficult to obtain history. She locates the pain to the epigastric down to the periumbilical region, described as a constant 10/10 pain. She states it is not relieved by the pain medications. She reports nausea and dry heaving, does get some occasional relief with antiemetics. Denies fevers or chills. She states she has not had a bowel movement. She has not attempted any oral intake due to the pain. She has no other medical complaints at this time. Physical Exam Vital signs: Vital Signs 03/12/18 09:47 03/12/18 11:48 03/12/18 12:27 Temperature 98 F Pulse Rate 71 77 Respiratory Rate 22 22 24 Blood Pressure 137/89 135/82 Pulse Oximetry 99 98 03/12/18 15:13 03/12/18 16:08 03/12/18 20:00 Temperature 98.4 F 98.0 F Pulse Rate 69 63 Respiratory Rate 14 20 16 Blood Pressure 136/65 116/64 Pulse Oximetry 99 100 03/13/18 00:00 03/13/18 03:25 03/13/18 04:00 Temperature 98.4 F 98.1 F Pulse Rate 70 70 Respiratory Rate 16 17 16 Blood Pressure 104/55 L 112/64 Pulse Oximetry 97 98 03/13/18 08:36 Temperature 97.5 F L Pulse Rate 66 Respiratory Rate 16 Blood Pressure 124/81 Pulse Oximetry 100 Intake & Output 03/12/18 03/13/18 03/13/18 18:59 06:59 18:59 Intake Total 1000 / 1000 Balance 1000 / 1000 Weight 60.4 kg Intake: IV 1000 / 1000 NS Inj 1,000 ML @ Wide Open IV. 1000 / 1000 SIG BOLUS DUY Rx#:[id number] Other: # Voids 1 Weight On Admission 60.4 kg Narrative: GENERAL: Well-nourished, well-developed patient in NAD. Moaning in pain, no tears. SKIN: Warm and dry. No rash. HEENT: Normocephalic. Atraumatic. Pupils equal and round. Mucous membranes pink and moist. CARDIOVASCULAR: Regular rate and rhythm. No murmur appreciated. RESPIRATORY: No accessory muscle use. Clear to auscultation. Breath sounds equal bilaterally. GASTROINTESTINAL: Abdomen soft, nondistended, diffuse TTP, worse across bilateral upper quadrants and periumbilical region. Normoactive bowel sounds x4. MUSCULOSKELETAL: No obvious deformities. Extremities without clubbing, cyanosis , or edema. NEUROLOGICAL: Awake and alert. No obvious cranial nerve deficits. Motor grossly within normal limits. Moving all extremities spontaneously. Normal speech. PSYCHIATRIC: Anxious. Results - Labs CBC & Chem 7: 03/13/18 08:05 03/13/18 08:05 Laboratory Results - last 24 hr 03/12/18 03/12/18 03/12/18 10:31 10:31 12:49 WBC 12.9 H RBC 3.87 L Hgb 12.0 Hct 35.6 MCV 92.1 MCH 31.0 MCHC 33.7 RDW 15.3 Plt Count 276 MPV 7.7 Neut % (Auto) 76.8 H Lymph % (Auto) 17.4 [place] % (Auto) 4.9 Eos % (Auto) 0.4 Baso % (Auto) 0.5 Neut # (Auto) 9.9 H Lymph # (Auto) 2.2 [place] # (Auto) 0.6 Eos # (Auto) 0.1 Baso # (Auto) 0.1 WBC Differential . Differential Comment Auto diff final Sodium 141 Potassium 4.6 Chloride 112 H Carbon Dioxide 21.6 Anion Gap 7 BUN 18 Creatinine 0.87 Estimated GFR 71 L Random Glucose 124 H Calcium 7.6 L Total Bilirubin 0.4 AST 34 ALT 16 Alkaline Phosphatase 66 Total Protein 6.8 Albumin 3.4 Lipase 63 L Urine Color Straw Urine Clarity Clear Urine pH 7.0 Ur Specific [place] 1.042 H Urine Protein Negative Urine Glucose (UA) Negative Urine Ketones 20 Urine Occult Blood Small H Urine Nitrate Negative Urine Bilirubin Negative Urine Urobilinogen Less than 2 Ur Leukocyte Esterase Negative Urine RBC 2 Urine WBC 1 Ur Squamous Epith Cells <1 Micro UA Comment Culture not ind Ur Microscopic Review Not Reportable Urine Culture Comments Culture not ind Clue Cells (Wet Prep) Trichomonas (Wet Prep) Yeast (Wet Prep) Urine Opiates Screen Ur Barbiturates Screen Ur Amphetamines Screen U Benzodiazepines Scrn Urine Cocaine Screen U Cannabinoids Screen Chlam trachomat DNA PCR N.gonorrhoeae DNA (PCR) 03/12/18 03/12/18 03/12/18 12:49 14:28 14:28 WBC RBC Hgb Hct MCV MCH MCHC RDW Plt Count MPV Neut % (Auto) Lymph % (Auto) [place] % (Auto) Eos % (Auto) Baso % (Auto) Neut # (Auto) Lymph # (Auto) [place] # (Auto) Eos # (Auto) Baso # (Auto) WBC Differential Differential Comment Sodium Potassium Chloride Carbon Dioxide Anion Gap BUN Creatinine Estimated GFR Random Glucose Calcium Total Bilirubin AST ALT Alkaline Phosphatase Total Protein Albumin Lipase Urine Color Urine Clarity Urine pH Ur Specific [place] Urine Protein Urine Glucose (UA) Urine Ketones Urine Occult Blood Urine Nitrate Urine Bilirubin Urine Urobilinogen Ur Leukocyte Esterase Urine RBC Urine WBC Ur Squamous Epith Cells Micro UA Comment Ur Microscopic Review Urine Culture Comments Clue Cells (Wet Prep) None seen Trichomonas (Wet Prep) None seen Yeast (Wet Prep) None seen Urine Opiates Screen Pos H Ur Barbiturates Screen Neg Ur Amphetamines Screen Neg U Benzodiazepines Scrn Neg Urine Cocaine Screen Neg U Cannabinoids Screen Pos H Chlam trachomat DNA PCR Not detected N.gonorrhoeae DNA (PCR) Not detected 03/13/18 08:05 WBC 6.2 D RBC 3.53 L Hgb 11.1 L Hct 32.7 L MCV 92.7 MCH 31.5 MCHC 34.0 RDW 14.9 Plt Count 238 MPV 7.3 Neut % (Auto) 38.8 Lymph % (Auto) 51.5 H Will % (Auto) 8.6 H Eos % (Auto) 0.7 Baso % (Auto) 0.4 Neut # (Auto) 2.4 Lymph # (Auto) 3.2 [place] # (Auto) 0.5 Eos # (Auto) 0.0 Baso # (Auto) 0.0 WBC Differential . Differential Comment Auto diff final Sodium Potassium Chloride Carbon Dioxide Anion Gap BUN Creatinine Estimated GFR Random Glucose Calcium Total Bilirubin AST ALT Alkaline Phosphatase Total Protein Albumin Lipase Urine Color Urine Clarity Urine pH Ur Specific [place] Urine Protein Urine Glucose (UA) Urine Ketones Urine Occult Blood Urine Nitrate Urine Bilirubin Urine Urobilinogen Ur Leukocyte Esterase Urine RBC Urine WBC Ur Squamous Epith Cells Micro UA Comment Ur Microscopic Review Urine Culture Comments Clue Cells (Wet Prep) Trichomonas (Wet Prep) Yeast (Wet Prep) Urine Opiates Screen Ur Barbiturates Screen Ur Amphetamines Screen U Benzodiazepines Scrn Urine Cocaine Screen U Cannabinoids Screen Chlam trachomat DNA PCR N.gonorrhoeae DNA (PCR) - Imaging Impressions Abdomen/Pelvis CT 03/12/18 10:45 CONCLUSION: 1. Abnormal appearance of the endometrial cavity which is widened up to 3.6 cm and contains a small locule of air. 2. There are atelectasis in the left lower lobe and right middle lobe. 3. Otherwise unremarkable. Assessment and Plan - Plan 42-year-old with a history of Crohn's colitis status post NovaSure ablation 2 days ago. She presents to the emergency department because of abdominal pain since the procedure. Intractable Abdominal Pain: unclear etiology. -Abdominal CT showed abnormal appearance of the endometrial cavity to 3.6 cm and contains a small locule of air. -LIFE INSURANCE SALES AGENT consulted, per dish stacker, CT scan with no signs of uterine perforation, the free air which is minimal is consistent with post ablative changes. -Per Director Of Early Childhood Speculum exam showed small amount of bleeding from the cervix which is not unusual from post ablation. -Continue supportive treatment with IVF, antiemetics prn, pain control with Lortab and IV morphine prn -Liquid diet for now -Consult GI, patient with hx of Crohn's, appreciate GI assistance -Abdominal MRA negative Leukocytosis: WBC 12.9K. -Urinalysis unremarkable. -No respiratory symptoms. -Likely reactive. -Repeat CBC much improved, WBC 6.2K Hyperglycemia: randome glucose 124 -fasting glucose 75 DVT prophylaxis with early ambulation Discharge Planning: Discharge pending further clinical improvement and when tolerating oral intake.
[2018-03-13 09:44] LABS: Calcium 7.8 mg/dL (8.5-10.1); Magnesium 1.8 mg/dL (1.5-2.5); Potassium 3.1 meq/L (3.5-5.1)
[2018-03-13] MEDS: Sod Chloride 0.9% Inj 1,000 ML IV.CONT SCH (10:24)
[2018-03-13] MEDS: Potassium Chlor 20 mEq Premix 20 MEQ/100 ML PIGGYBACK IV.SIG SCH ×2 (11:54→14:46)
[2018-03-13] MEDS ORDERED: Gadobutrol PF 10 MMOL/10 ML Vial (for RAD) IV.SIG ONE (12:30)
--- NOTE | 2018-03-13 13:52 | MR ---
EXAM DATE: 03/13/2018 11:43 AM EDT AGE/SEX: 42 years / Female INDICATIONS: . Severe abdominal pain for 2 days. CLINICAL DATA: This is the patient's subsequent encounter. Patient reports that signs and symptoms h ave been present for 2 days and indicates a pain score of 9/10. MEDICAL/SURGICAL HISTORY: . Colitis. . Endometrial ablation. COMPARISON: [facility] [place], CT ABDOMEN & PELVIS W CONTRAST, 03/12/2018. . TECHNIQUE: 20 ml Gadavist (gadobutrol) contrast infused MR angiography (single exam dose) was perfo rmed with digital subtraction. The data was postprocessed with a variety of visualization algorithms including full-volume maximum-intensity projection, multiplanar sliding thin slab reformation, and c urved planar reformation. FINDINGS: Abdominal Aorta: The lumen is smooth without significant narrowing or aneurysmal dilation. The pr oximal celiac and superior mesenteric arteries are patent and normal in diameter. Renal Arteries: There are solitary renal arteries bilaterally. No evidence of ostial or segmental s tenosis. Kidneys: There is symmetric renal size. There is homogeneous enhancement in the parenchyma. Bifurcation: Normal. Right Pelvis: The right common iliac, internal iliac, and external iliac vessels are patent without luminal irregularity. Left Pelvis: The left common iliac, internal iliac, and external iliac vessels are patent and withou t luminal irregularity. Retroperitoneum: The adrenal glands are unremarkable. No adenopathy seen. Post Contrast: No abnormal areas of enhancement seen. Tiny hepatic cysts CONCLUSION: Negative MRA Abdomen Electronically signed by: Piyush Uriarte MD 03/13/2018 1:51 PM EDT
--- NOTE | 2018-03-13 14:12 | P.PNGI ---
Subjective Interval history: Patient laying supine in bed resting soundly with eyes closed. Awakens easily, denies any abdominal pain at this time. Reports nausea this a.m. that she feels may have been related to taking medication on an empty stomach. Tolerating popsicles and Jell-O on clear liquid diet well.. No BM today yet, but states passing gas. <Ricarda Padron - Last Filed: 03/13/18 14:19> Physical Exam Vital signs: Vital Signs 03/12/18 15:13 03/12/18 16:08 03/12/18 20:00 Temperature 98.4 F 98.0 F Pulse Rate 69 63 Respiratory Rate 14 20 16 Blood Pressure 136/65 116/64 Pulse Oximetry 99 100 03/13/18 00:00 03/13/18 03:25 03/13/18 04:00 Temperature 98.4 F 98.1 F Pulse Rate 70 70 Respiratory Rate 16 17 16 Blood Pressure 104/55 L 112/64 Pulse Oximetry 97 98 03/13/18 08:36 03/13/18 13:10 Temperature 97.5 F L 97.9 F Pulse Rate 66 83 Respiratory Rate 16 18 Blood Pressure 124/81 124/80 Pulse Oximetry 100 97 Intake & Output 03/12/18 03/13/18 03/13/18 18:59 06:59 18:59 Intake Total 1000 / 1000 1000 / 1000 Balance 1000 / 1000 1000 / 1000 Weight 60.4 kg Intake: IV 1000 / 1000 1000 / 1000 NS Inj 1,000 ML @ 60 mls/hr IV. 1000 / 1000 CONT .[id number] DUY Rx#:[id number] NS Inj 1,000 ML @ Wide Open IV. 1000 / 1000 SIG BOLUS DUY Rx#:[id number] Other: # Voids 1 Weight On Admission 60.4 kg - Constitutional no acute distress - Routine HEENT Exam Head: Present: normocephalic - Routine Respiratory Exam Present: CTA bilaterally. Absent: accessory muscle use - Routine Cardiovascular Exam Present: RRR - Routine Abdominal Exam Present: soft, normoactive bowel sounds. Absent: tenderness, distended, guarding, firm - Routine Extremities Exam Present: full ROM, pulses intact. Absent: edema - Routine Skin Exam Present: dry, warm - Routine Psychiatric Exam Present: normal affect, cooperative <Ricarda Padron - Last Filed: 03/13/18 14:19> Vital signs: Vital Signs 03/12/18 20:00 03/13/18 00:00 03/13/18 03:25 Temperature 98.0 F 98.4 F Pulse Rate 63 70 Respiratory Rate 16 16 17 Blood Pressure 116/64 104/55 L Pulse Oximetry 100 97 03/13/18 04:00 03/13/18 08:36 03/13/18 13:10 Temperature 98.1 F 97.5 F L 97.9 F Pulse Rate 70 66 83 Respiratory Rate 16 16 18 Blood Pressure 112/64 124/81 124/80 Pulse Oximetry 98 100 97 03/13/18 16:13 Temperature 97.9 F Pulse Rate 68 Respiratory Rate 18 Blood Pressure 129/79 Pulse Oximetry 100 Intake & Output 03/13/18 03/13/18 03/14/18 06:59 18:59 06:59 Intake Total 1390 / 1390 Balance 1390 / 1390 Intake: IV 1390 / 1390 NS Inj 1,000 ML @ 60 mls/hr IV. 1000 / 1000 CONT .[id number] DUY Rx#:[id number] Cipro 200 MG/100 ML Inj 200 mg 100 / 100 In 100 ml @ 100 mls/hr IV.SIG Q12H DUY Rx#:[id number] KCl 20 mEq Premix Inj 20 meq In 200 / 200 100 ml @ 50 mls/hr IV.SIG Q2H DUY Rx#:[id number] Flagyl 500 MG Inj 100 ML @ 100 90 / 90 mls/hr IV.SIG Q8H DYU Rx#: [id number] Other: # Voids 3 <Caro Luciano - Last Filed: 03/13/18 19:19> Results - Labs CBC & Chem 7: 03/13/18 08:05 03/13/18 08:05 Laboratory Results - last 24 hr 03/12/18 03/12/18 03/12/18 12:49 14:28 14:28 WBC RBC Hgb Hct MCV MCH MCHC RDW Plt Count MPV Neut % (Auto) Lymph % (Auto) [place] % (Auto) Eos % (Auto) Baso % (Auto) Neut # (Auto) Lymph # (Auto) [place] # (Auto) Eos # (Auto) Baso # (Auto) WBC Differential Differential Comment Sodium Potassium Chloride Carbon Dioxide Anion Gap BUN Creatinine Estimated GFR Random Glucose Calcium Magnesium Clue Cells (Wet Prep) None seen Trichomonas (Wet Prep) None seen Yeast (Wet Prep) None seen Urine Opiates Screen Pos H Ur Barbiturates Screen Neg Ur Amphetamines Screen Neg U Benzodiazepines Scrn Neg Urine Cocaine Screen Neg U Cannabinoids Screen Pos H Chlam trachomat DNA PCR Not detected N.gonorrhoeae DNA (PCR) Not detected 03/13/18 03/13/18 08:05 08:05 WBC 6.2 D RBC 3.53 L Hgb 11.1 L Hct 32.7 L MCV 92.7 MCH 31.5 MCHC 34.0 RDW 14.9 Plt Count 238 MPV 7.3 Neut % (Auto) 38.8 Lymph % (Auto) 51.5 H [place] % (Auto) 8.6 H Eos % (Auto) 0.7 Baso % (Auto) 0.4 Neut # (Auto) 2.4 Lymph # (Auto) 3.2 [place] # (Auto) 0.5 Eos # (Auto) 0.0 Baso # (Auto) 0.0 WBC Differential . Differential Comment Auto diff final Sodium 142 Potassium 3.1 L D Chloride 110 H Carbon Dioxide 26.0 Anion Gap 6 BUN 12 Creatinine 0.82 Estimated GFR 76 L Random Glucose 75 Calcium 7.8 L Magnesium 1.8 Clue Cells (Wet Prep) Trichomonas (Wet Prep) Yeast (Wet Prep) Urine Opiates Screen Ur Barbiturates Screen Ur Amphetamines Screen U Benzodiazepines Scrn Urine Cocaine Screen U Cannabinoids Screen Chlam trachomat DNA PCR N.gonorrhoeae DNA (PCR) - Imaging Impressions Abdomen MRA 03/13/18 00:00 CONCLUSION: Negative MRA Abdomen <Ricarda Padron - Last Filed: 03/13/18 14:19> - Labs CBC & Chem 7: 03/13/18 08:05 03/13/18 08:05 Laboratory Results - last 24 hr 03/12/18 03/13/18 03/13/18 14:28 08:05 08:05 WBC 6.2 D RBC 3.53 L Hgb 11.1 L Hct 32.7 L MCV 92.7 MCH 31.5 MCHC 34.0 RDW 14.9 Plt Count 238 MPV 7.3 Neut % (Auto) 38.8 Lymph % (Auto) 51.5 H [place] % (Auto) 8.6 H Eos % (Auto) 0.7 Baso % (Auto) 0.4 Neut # (Auto) 2.4 Lymph # (Auto) 3.2 [place] # (Auto) 0.5 Eos # (Auto) 0.0 Baso # (Auto) 0.0 WBC Differential . Differential Comment Auto diff final Sodium 142 Potassium 3.1 L D Chloride 110 H Carbon Dioxide 26.0 Anion Gap 6 BUN 12 Creatinine 0.82 Estimated GFR 76 L Random Glucose 75 Calcium 7.8 L Magnesium 1.8 Chlam trachomat DNA PCR Not detected N.gonorrhoeae DNA (PCR) Not detected - Imaging Impressions Abdomen MRA 03/13/18 00:00 CONCLUSION: Negative MRA Abdomen <Caro Luciano - Last Filed: 03/13/18 19:19> Assessment and Plan (1) Abdominal pain Status: Acute Code(s): R10.9 - Unspecified abdominal pain - Plan Ms. Newman is a 42-year-old patient who presents to the emergency room this afternoon at [facility] for reported abdominal pain for 2 days. Patient states she has a history of Crohn's, gastritis, and colitis. Patient status post uterine ablation 2 days ago and states she has been having mid epigastric abdominal spasms and cramping since the procedure. She denies any fever or chills. She denies diarrhea constipation and any noted blood in the stool. She endorses nausea but denies vomiting. She rates the pain as 10 out of 10 at this time and states the only medication that works for this pain "begins with the D and has to be given with my anxiety medicine to the IV". Patient unable to determine aggravating or alleviating factors she states this pain is intermittent. GC and Chlamydia PCR obtained and pending. 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 Our practice has been consulted to evaluate patient's intractable abdominal pain. CT abdomen and pelvis done on admission reveal--. 1. Abnormal appearance of the endometrial cavity which is widened up to 3.6 cm and contains a small locule of air. 2. There are atelectasis in the left lower lobe and right middle lobe. 3. Otherwise unremarkable. Patient denies any noted blood in stool. States last BM this morning soft and brown. States she takes Bentyl as a home medication for pain as well as omeprazole once daily. She reports last EGD and colonoscopy done 1 year ago, at that time she states she was diagnosed with Crohn's and was treated for colitis. Patient denies any known family history of gastrointestinal disorders/ diseases. Reports she smokes 3 cigarettes daily and does not drink alcohol. She denies the use of any illicit drugs. During consultation patient writhing restless and moaning Intractable abdominal pain Patient status post uterine ablation 2 days ago, presented to the emergency department with complaint of epigastric mid upper quadrant abdominal spasms and cramping since having procedure. CT abdomen and pelvis results as noted above. WBC 12.9 hemoglobin 12.0 hematocrit 35.6 platelet count 276. Total bilirubin 0.4 AST 34 ALT 16 alk phos 66 lipase 63. 03/13/2018 Intractable abdominal pain Patient resting soundly in bed awakens easily and denies any abdominal pain. States she is tolerating clear liquid diet well. States hoping to be discharged home soon. Hemoglobin 11.1 hematocrit 32.7 platelet count 238. Abdominal MRA findings as follows: Negative MRA Abdomen Plan -Advance to full liquid diet for dinner -Antiemetics and analgesics as per attending -Supportive care This patient has been seen by myself and Dr. Luciano and this note is written on her behalf - Attending Attestation Dr. Luciano <Ricarda Padron - Last Filed: 03/13/18 14:19> (1) Abdominal pain Status: Acute Code(s): R10.9 - Unspecified abdominal pain - Attending Attestation seen, examined agree with above mra negative reviewed records from office-patient scheduled for egd/colon in the future , as based on old records Crohn's disease diagnosis not clear last egd/colon in our chart 2014-no indication of Crohn's disease As per patient she had another colonoscopy last year -outside the area-was told she has colitis Offered to schedule egd/colon in am, states every time she has anesthesia develops severe abdominal pain, takes few days to recover She will schedule op <Caro Luciano - Last Filed: 03/13/18 19:19>
[2018-03-13] MEDS: Ciprofloxacin 200 MG/100 ML 200 MG/100 ML PIGGYBACK IV.SIG SCH (14:45)
[2018-03-13] MEDS ORDERED: Amitriptyline 10 MG Tablet PO SCH (21:00)
[2018-03-14] MEDS: Ciprofloxacin 200 MG/100 ML 200 MG/100 ML PIGGYBACK IV.SIG SCH (02:07)
[2018-03-14] MEDS: Morphine Inj 4 MG/ML Vial IV.PUSH PRN (03:57)
[2018-03-14 08:09] VITALS: RESP 20
--- NOTE | 2018-03-14 08:40 | P.PNGI ---
Subjective Interval history: Able to sit up in the bed this a.m. some family members present. Patient is drinking warm liquids without any nausea and no vomiting this a.m. states abdominal pain has subsided except for an occasional cramping. WBC count has normalized to 6.2 no obvious bleeding hemoglobin 11.1 <Iva Montgomery - Last Filed: 03/14/18 09:15> Physical Exam Vital signs: Vital Signs 03/13/18 13:10 03/13/18 16:13 03/13/18 20:00 Temperature 97.9 F 97.9 F 98.4 F Pulse Rate 83 68 55 L Respiratory Rate 18 18 16 Blood Pressure 124/80 129/79 116/65 Pulse Oximetry 97 100 99 03/13/18 20:32 03/14/18 00:00 03/14/18 04:00 Temperature 98.2 F 98.8 F Pulse Rate 67 67 Respiratory Rate 16 16 15 Blood Pressure 120/75 126/65 Pulse Oximetry 100 97 03/14/18 08:07 Temperature 98.6 F Pulse Rate 76 Respiratory Rate 20 Blood Pressure 118/63 Pulse Oximetry 98 Intake & Output 03/13/18 03/14/18 03/14/18 18:59 06:59 18:59 Intake Total 1390 / 1390 300 / 300 Balance 1390 / 1390 300 / 300 Intake: IV 1390 / 1390 300 / 300 NS Inj 1,000 ML @ 60 mls/hr IV. 1000 / 1000 CONT .[id number] DUY Rx#:[id number] Cipro 200 MG/100 ML Inj 200 mg 100 / 100 100 / 100 In 100 ml @ 100 mls/hr IV.SIG Q12H DUY Rx#:[id number] KCl 20 mEq Premix Inj 20 meq In 200 / 200 100 ml @ 50 mls/hr IV.SIG Q2H DUY Rx#:[id number] Flagyl 500 MG Inj 100 ML @ 100 90 / 90 200 / 200 mls/hr IV.SIG Q8H DUY Rx#: [id number] Other: # Voids 3 - Constitutional no acute distress - Routine HEENT Exam Head: Present: normocephalic ENT: Present: mucous membranes moist - Routine Neck Exam Present: supple - Routine Respiratory Exam Present: accessory muscle use (Even, unlabored) - Routine Cardiovascular Exam Present: S1, S2 - Routine Abdominal Exam Present: soft, normoactive bowel sounds, tenderness (Minimal) - Routine Skin Exam Present: intact - Routine Neurological Exam Present: alert <Iva Montgomery - Last Filed: 03/14/18 09:15> Vital signs: Vital Signs 03/13/18 16:13 03/13/18 20:00 03/13/18 20:32 Temperature 97.9 F 98.4 F Pulse Rate 68 55 L Respiratory Rate 18 16 16 Blood Pressure 129/79 116/65 Pulse Oximetry 100 99 03/14/18 00:00 03/14/18 04:00 03/14/18 08:07 Temperature 98.2 F 98.8 F 98.6 F Pulse Rate 67 67 76 Respiratory Rate 16 15 20 Blood Pressure 120/75 126/65 118/63 Pulse Oximetry 100 97 98 03/14/18 11:55 Temperature 98.3 F Pulse Rate 75 Respiratory Rate 20 Blood Pressure 140/67 Pulse Oximetry 100 Intake & Output 03/13/18 03/14/18 03/14/18 18:59 06:59 18:59 Intake Total 1390 / 1390 300 / 300 0 / 0 Balance 1390 / 1390 300 / 300 0 / 0 Intake: IV 1390 / 1390 300 / 300 0 / 0 NS Inj 1,000 ML @ 60 mls/hr IV. 1000 / 1000 CONT .[id number] DUY Rx#:[id number] Cipro 200 MG/100 ML Inj 200 mg 100 / 100 100 / 100 In 100 ml @ 100 mls/hr IV.SIG Q12H DUY Rx#:[id number] KCl 20 mEq Premix Inj 20 meq In 200 / 200 100 ml @ 50 mls/hr IV.SIG Q2H DUY Rx#:[id number] Flagyl 500 MG Inj 100 ML @ 100 90 / 90 200 / 200 0 / 0 mls/hr IV.SIG Q8H DUY Rx#: [id number] Other: # Voids 3 <Caro Luciano - Last Filed: 03/14/18 15:54> Results - Labs CBC & Chem 7: 03/13/18 08:05 03/13/18 08:05 Laboratory Results - last 24 hr 03/13/18 03/13/18 08:05 08:05 WBC 6.2 D RBC 3.53 L Hgb 11.1 L Hct 32.7 L MCV 92.7 MCH 31.5 MCHC 34.0 RDW 14.9 Plt Count 238 MPV 7.3 Neut % (Auto) 38.8 Lymph % (Auto) 51.5 H [place] % (Auto) 8.6 H Eos % (Auto) 0.7 Baso % (Auto) 0.4 Neut # (Auto) 2.4 Lymph # (Auto) 3.2 [place] # (Auto) 0.5 Eos # (Auto) 0.0 Baso # (Auto) 0.0 WBC Differential . Differential Comment Auto diff final Sodium 142 Potassium 3.1 L D Chloride 110 H Carbon Dioxide 26.0 Anion Gap 6 BUN 12 Creatinine 0.82 Estimated GFR 76 L Random Glucose 75 Calcium 7.8 L Magnesium 1.8 - Imaging Impressions Abdomen MRA 03/13/18 00:00 CONCLUSION: Negative MRA Abdomen <Iva Montgomery - Last Filed: 03/14/18 09:15> - Labs CBC & Chem 7: 03/13/18 08:05 03/13/18 08:05 <Caro Luciano - Last Filed: 03/14/18 15:54> Assessment and Plan (1) Abdominal pain Status: Acute Code(s): R10.9 - Unspecified abdominal pain - Plan Ms. Newman is a 42-year-old patient who presents to the emergency room this afternoon at [facility] for reported abdominal pain for 2 days. Patient states she has a history of Crohn's, gastritis, and colitis. Patient status post uterine ablation 2 days ago and states she has been having mid epigastric abdominal spasms and cramping since the procedure. She denies any fever or chills. She denies diarrhea constipation and any noted blood in the stool. She endorses nausea but denies vomiting. She rates the pain as 10 out of 10 at this time and states the only medication that works for this pain "begins with the D and has to be given with my anxiety medicine to the IV". Patient unable to determine aggravating or alleviating factors she states this pain is intermittent. GC and Chlamydia PCR obtained and pending. 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 Our practice has been consulted to evaluate patient's intractable abdominal pain. CT abdomen and pelvis done on admission reveal--. 1. Abnormal appearance of the endometrial cavity which is widened up to 3.6 cm and contains a small locule of air. 2. There are atelectasis in the left lower lobe and right middle lobe. 3. Otherwise unremarkable. Patient denies any noted blood in stool. States last BM this morning soft and brown. States she takes Bentyl as a home medication for pain as well as omeprazole once daily. She reports last EGD and colonoscopy done 1 year ago, at that time she states she was diagnosed with Crohn's and was treated for colitis. Patient denies any known family history of gastrointestinal disorders/ diseases. Reports she smokes 3 cigarettes daily and does not drink alcohol. She denies the use of any illicit drugs. During consultation patient writhing restless and moaning Intractable abdominal pain Patient status post uterine ablation 2 days ago, presented to the emergency department with complaint of epigastric mid upper quadrant abdominal spasms and cramping since having procedure. CT abdomen and pelvis results as noted above. WBC 12.9 hemoglobin 12.0 hematocrit 35.6 platelet count 276. Total bilirubin 0.4 AST 34 ALT 16 alk phos 66 lipase 63. 03/13/2018 Intractable abdominal pain Patient resting soundly in bed awakens easily and denies any abdominal pain. States she is tolerating clear liquid diet well. States hoping to be discharged home soon. Hemoglobin 11.1 hematocrit 32.7 platelet count 238. Abdominal MRA findings as follows: Negative MRA Abdomen 03/14/18, abdominal pain is now controlled without any nausea vomiting patient is tolerating clear liquids without any difficulty. Patient was diagnosed with Crohn's disease in the [facility] but has currently not been on any medications. She has been seen in the GI office outpatient and has been given a prescription for sulfasalazine, but is not been taking it. States her diarrhea is chronic and she does occasionally see blood but none recently. We discussed plan for EGD colonoscopy outpatient which has already been discussed with her. Abdominal MRI is negative. No obvious bleeding hemoglobin 11.1, normalized WBC count 6.2. Potassium 3.1 today. Patient notes recent uterine ablation and chronic abdominal pain with anesthesia or certain pain meds which could have been the cause of this abdominal pain. From a GI standpoint patient could discharge and be followed up in our office. Plan Diet tolerating clear liquids may advance as tolerated Follow-up in the GI office for outpatient EGD and colonoscopy Supportive care Patient was seen per myself and Dr. Luciano, note was written on her behalf <Iva Montgomery - Last Filed: 03/14/18 09:15> (1) Abdominal pain Status: Acute Code(s): R10.9 - Unspecified abdominal pain - Attending Attestation agree with above <Caro Luciano - Last Filed: 03/14/18 15:54>
--- NOTE | 2018-03-14 10:11 | P.DS ---
Date of admission: 03/12/18 13:29 Primary care physician: UNKNOWN Brief History from admission: This is a 42-year-old with a history of Crohn's colitis status post NovaSure ablation 2 days ago. Her spot worker is Dr. Quiroz. She presents to the emergency department because of abdominal pain since the procedure. She describes a severe mid abdominal pain associated with nausea and dry heaves. Denies fever, chills, UTI symptoms and constipation. She has chronic loose stool once a day on Bentyl. She also has vaginal spotting. Abdominal CT showed abnormal appearance of the endometrial cavity to 3.6 cm and contains a small locule of air. Per Advisor To [employer] In [employer] CT scan with no signs of uterine perforation, the free air which is minimal is consistent with post ablative changes. Speculum exam showed small amount of bleeding from the cervix which is not unusual from post ablation. Cultures were taken. At this time, patient still complains of pain unable to obtain good history as patient has constant morning. She has received IV morphine and Toradol. All other systems reviewed negative. Case also discussed with GI Patient update on day of discharge: The patient reports significant improvement overnight. She denies any current abdominal pain, just some occasional cramping. Denies fevers or chills. Denies any nausea or vomiting overnight. She tolerated full liquids, wants to try more solid foods today. She wants to go home. She plans to follow-up as outpatient Dr. Luciano for EGD/colonoscopy. DS: Diagnosis - Discharge Diagnosis (1) Abdominal pain Status: Acute (2) History of endometrial ablation Status: Acute DS: Medications - Discharge Medications Prescriptions: amitriptyline 10 mg PO HS #30 tab ciprofloxacin HCl [Cipro] 500 mg PO BID 7 Days #14 tab metronidazole [Flagyl] 500 mg PO TID 7 Days #21 tab DS: Summary Hospital Course: 42-year-old with a history of Crohn's colitis status post NovaSure ablation 2 days ago. She presents to the emergency department because of abdominal pain since the procedure. Intractable Abdominal Pain: unclear etiology. Abdominal CT showed abnormal appearance of the endometrial cavity to 3.6 cm and contains a small locule of air. RUG CLEANER HELPER consulted, per nuclear physician, CT scan with no signs of uterine perforation, the free air which is minimal is consistent with post ablative changes. Per Advisor To [employer] In [employer] Speculum exam showed small amount of bleeding from the cervix which is not unusual from post ablation. Continue supportive treatment with IVF, antiemetics prn, pain control with Lortab and IV morphine prn. Given liquid diet. Consult GI, patient with hx of Crohn's, started on Cipro/Flagyl and amitriptyline. Abdominal MRA negative. Patient much improved, tolerating oral intake, advance diet, discharged home with outpatient follow-up. Recommended EGD/colonoscopy as outpatient with Dr. Luciano. Leukocytosis: WBC 12.9K. Urinalysis unremarkable. No respiratory symptoms. Likely reactive. Repeat CBC much improved, WBC 6.2K. Resolved. - Time Spent with Patient Total time spent providing and/or coordinating discharge services: Less than 30 minutes - Quality: VTE Deep Vein Thrombosis/Pulmonary Embolism Present on Admission: No Exam Vital signs: Vital Signs 03/13/18 13:10 03/13/18 16:13 03/13/18 20:00 Temperature 97.9 F 97.9 F 98.4 F Pulse Rate 83 68 55 L Respiratory Rate 18 18 16 Blood Pressure 124/80 129/79 116/65 Pulse Oximetry 97 100 99 03/13/18 20:32 03/14/18 00:00 03/14/18 04:00 Temperature 98.2 F 98.8 F Pulse Rate 67 67 Respiratory Rate 16 16 15 Blood Pressure 120/75 126/65 Pulse Oximetry 100 97 03/14/18 08:07 Temperature 98.6 F Pulse Rate 76 Respiratory Rate 20 Blood Pressure 118/63 Pulse Oximetry 98 Intake & Output 03/13/18 03/14/18 03/14/18 18:59 06:59 18:59 Intake Total 1390 / 1390 300 / 300 Balance 1390 / 1390 300 / 300 Intake: IV 1390 / 1390 300 / 300 NS Inj 1,000 ML @ 60 mls/hr IV. 1000 / 1000 CONT .[id number] DUY Rx#:[id number] Cipro 200 MG/100 ML Inj 200 mg 100 / 100 100 / 100 In 100 ml @ 100 mls/hr IV.SIG Q12H DUY Rx#:[id number] KCl 20 mEq Premix Inj 20 meq In 200 / 200 100 ml @ 50 mls/hr IV.SIG Q2H DUY Rx#:[id number] Flagyl 500 MG Inj 100 ML @ 100 90 / 90 200 / 200 mls/hr IV.SIG Q8H DUY Rx#: [id number] Other: # Voids 3 Narrative: GENERAL: Well-nourished, well-developed patient in NAD. SKIN: Warm and dry. No rash. HEENT: Normocephalic. Atraumatic. Pupils equal and round. Mucous membranes pink and moist. CARDIOVASCULAR: Regular rate and rhythm. No murmur appreciated. RESPIRATORY: No accessory muscle use. Clear to auscultation. Breath sounds equal bilaterally. GASTROINTESTINAL: Abdomen soft, nondistended, nontender. Normoactive bowel sounds x4. MUSCULOSKELETAL: No obvious deformities. Extremities without clubbing, cyanosis , or edema. NEUROLOGICAL: Awake and alert. No obvious cranial nerve deficits. Motor grossly within normal limits. Moving all extremities spontaneously. Normal speech. Results Procedures completed during hospitalization: No procedures. - Impressions ITS Impressions Abdomen/Pelvis CT 03/12/18 10:45 CONCLUSION: 1. Abnormal appearance of the endometrial cavity which is widened up to 3.6 cm and contains a small locule of air. 2. There are atelectasis in the left lower lobe and right middle lobe. 3. Otherwise unremarkable. Abdomen MRA 03/13/18 00:00 CONCLUSION: Negative MRA Abdomen Discharge Plan - Discharge Disposition Patient Disposition: 01 Discharge Home - Discharge Order Discharge Orders: Discharge Order (Routine); Ordered 03/14/18 Ordered By: Radha Guajardo - Discharge Details Anticipated Discharge Date: 03/14/18 Discharge Comment: Ok to discharge if tolerates lunch. - Physicians Team Primary Care Provider: UNKNOWN, Attending Provider: Heena Connelly Other Providers: Caro Luciano MD ; Octavia Rojo MD ; Kerline Churchill
[2018-03-14] MEDS: Sod Chloride 0.9% Inj 1,000 ML IV.CONT SCH (10:22)
[2018-03-14] MEDS: Pantoprazole Sodium 20 MG DR Tablet PO SCH (10:23)
[2018-03-14] MEDS ORDERED: Ciprofloxacin 500 MG Tablet PO SCH (11:30)
[2018-03-14 12:00] VITALS: BP 140/67; PULSE 75; TEMP 98.3; O2SAT 100
[2018-03-14] MEDS ORDERED: metroNIDAZOLE 500 MG Tablet PO SCH (19:00)
== END 2018-03-14 15:12 | disposition home or self-care (01) ==
LOC: NEPE 09:42 → NEDA 09:42 → NEPHCDU 15:30
PROVIDERS: ADMIT Hospitalist; ATTEND Hospitalist